=== PATIENT | female | born 1955 ===

== ENCOUNTER 2019-08-28 06:30 | Day surgery (SDC) | payer OTHER ==
[~2019-08-28 06:30] MED LIST: CRESTOR10 MG PO
[2019-08-28] MEDS ORDERED: PERCOCET 5-3251 EACH PO (12:44)
== END 2019-08-28 16:20 | disposition home or self-care (01) ==
LOC: CIR.AMB 06:30
PROVIDERS: ATTEND Surgery
DX: E21.0 Primary hyperparathyroidism (principal)